=== PATIENT | male | born 2000 | race Hispanic/Latino ===

== ENCOUNTER 2022-07-31 16:30 | Emergency (ER) | payer OTHER ==
[~2022-07-31] VITALS: Ht 188 cm; Wt 111.0 kg
[2022-07-31 16:32] VITALS: BP 136/81
[2022-07-31] MEDS ORDERED: BENZ200C70 PO ×2 (18:55→18:57)
[2022-07-31] MEDS ORDERED: AMOX875T2 PO ×2 (18:55→18:57)
== END 2022-07-31 19:05 | disposition home or self-care (01) ==
LOC: M ED 16:30
DX: J06.9 Acute upper respiratory infection, unspecified (principal); B34.9 Viral infection, unspecified; J02.9 Acute pharyngitis, unspecified; J45.909 Unspecified asthma, uncomplicated; J01.00 Acute maxillary sinusitis, unspecified; F17.200 Nicotine dependence, unspecified, uncomplicated

== ENCOUNTER → 2022-11-01 | Outpatient (CLI) | payer OTHER ==
[~2022-11-01] MED LIST: AMOX875T2 PO; BENZ200C70 PO
== END ==
LOC: M OUTALCOH 07:40
PROVIDERS: ATTEND Psychiatry & Neurology Psychiatry
DX: Z03.89 Encounter for observation for other suspected diseases and conditions ruled out (principal)

== ENCOUNTER 2022-12-02 09:19 | Outpatient (RCR) | payer OTHER | END 2022-12-11 | LOC: M OUTALCOH 09:19 | PROVIDERS: ATTEND Psychiatry & Neurology Psychiatry | DX: F10.20 Alcohol dependence, uncomplicated (principal); F17.200 Nicotine dependence, unspecified, uncomplicated ==

== ENCOUNTER 2022-12-29 09:30 | Outpatient (RCR) | payer OTHER | END 2023-01-11 | LOC: M OUTALCOH 09:30 | PROVIDERS: ATTEND Psychiatry & Neurology Psychiatry | DX: F10.20 Alcohol dependence, uncomplicated (principal); F17.200 Nicotine dependence, unspecified, uncomplicated ==

== ENCOUNTER 2023-01-26 09:30 | Outpatient (RCR) | payer OTHER ==
[~2023-01-26 09:30] MED LIST changes: +ACET-683 PO
== END 2023-02-10 ==
LOC: M OUTALCOH 09:30
PROVIDERS: ATTEND Psychiatry & Neurology Psychiatry
DX: F10.20 Alcohol dependence, uncomplicated (principal); F17.200 Nicotine dependence, unspecified, uncomplicated

== ENCOUNTER 2023-03-09 09:22 | Outpatient (RCR) | payer OTHER | END 2023-03-13 | LOC: M OUTALCOH 09:22 | PROVIDERS: ATTEND Psychiatry & Neurology Psychiatry | DX: F10.20 Alcohol dependence, uncomplicated (principal); F17.200 Nicotine dependence, unspecified, uncomplicated ==

== ENCOUNTER 2023-03-23 09:16 | Outpatient (RCR) | payer OTHER | END 2023-04-13 | LOC: M OUTALCOH 09:16 | PROVIDERS: ATTEND Psychiatry & Neurology Psychiatry | DX: F10.20 Alcohol dependence, uncomplicated (principal); F17.200 Nicotine dependence, unspecified, uncomplicated ==